=== PATIENT | female | born 1985 | race Two or more races ===

== ENCOUNTER 2023-12-18 21:42 | Outpatient (REF) | payer BC, SELFPAY | END 2023-12-18 21:43 | disposition home or self-care (01) | LOC: LAB 21:42 | PROVIDERS: Visit Provider Obstetrics & Gynecology | DX: Z01.419 Encounter for gynecological examination (general) (routine) without abnormal findings (principal) | CPT/HCPCS: 87624; 88175 ==

== ENCOUNTER 2024-02-12 07:17 | Outpatient (REF) | payer BC, SELFPAY ==
--- OUTSIDE RECORDS SUMMARY | 2024-02-16 07:20 | XMS_ITS | CCD ---
Author Organization [facility] Care Team Providers Care [employer] Sales Representative Name Role Phone MISC, DR ALVAREZ Consulting Unavailable CRISTINA, DR NIX Primary Care Unavailable [facility], DR ALVAREZ Attending Unavailable [facility], DR ALVAREZ Admitting Unavailable Syeda HADDAD, Malathi Mcclain Primary Care Provider [phone] Daniel SALES PROMOTER, Alba Valencia Unavailable Talya Aly DO Unavailable TALYA ALY Attending Unavailable ALBA MONSON Attending Unavailable ALBA MONSON Attending Unavailable ALBA MONSON Attending Unavailable ALBA MONSON Referring Unavailable ALBA MONSON Referring Unavailable MALATHI LANDA Attending Unavailable FAY MOON Attending Unavailable ALBA MONSON Referring Unavailable DANIEL PATEL Attending Unavailable ALBA MONSON Referring Unavailable DANIEL PATEL Attending Unavailable ALBA MONSON Referring Unavailable MALATHI LANDA Attending Unavailable FAY MOON Attending Unavailable Red, Fay Attending Unavailable Fay Moon Admitting Unavailable Medications Current Medications Medication Drug Class(es) Dates Sig (Normalized) Sig (Original) doxycycline hyclate 100 mg oral tablet (5 sources) Tetracycline-cla ss Drug Start: 12-25-2023 End: 06-22-2024 take 1 tablet by mouth in the morning, then take 1 tablet by mouth at bedtime doxycycline (Vibra-Tabs) 100 MG tablet Indications: Suppurative hidradenitis Take 1 tablet (100 mg) by mouth in the morning and 1 tablet (100 mg) before bedtime. Take with a full glass of water and do not lie down for at least 30 minutes after.. 60 tablet 5 12/25/2023 06/22/2024 Active Start: 11-25-2023 End: 12-18-2023 doxycycline (Vibra-Tabs) 100 MG tablet Indications: Suppurative hidradenitis Take with a full glass of water and do not lie down for at least 30 minutes after. Take bid for 7 days then once a day for 14 days 28 tablet 11/25/2023 12/18/2023 Discontinued naproxen 500 mg oral tablet (9 sources) Nonsteroidal Anti-inflammatory Drug Start: 12-18-2023 End: 01-17-2024 take 1 tablet by mouth in the morning naproxen (Naprosyn) 500 MG tablet Indications: Acute right-sided thoracic back pain Take 1 tablet (500 mg) by mouth in the morning and 1 tablet (500 mg) before bedtime. 60 tablet 12/18/2023 01/17/2024 Active tiZANidine 4 mg oral tablet (10 sources) Central alpha-2 Adrenergic Agonist Start: 12-11-2023 End: 12-26-2023 take 1 tablet by mouth in the morning tiZANidine (Zanaflex) 4 MG tablet Indications: Acute bilateral low back pain without sciatica Take 1 tablet (4 mg) by mouth in the morning and 1 tablet (4 mg) before bedtime. Do all this for 15 days. 30 tablet 12/11/2023 Active traMADol hydrochloride 50 mg oral tablet (2 sources) Opioid Agonist Start: 12-14-2023 End: 12-19-2023 take 1 tablet by mouth every six hours for pain traMADol (Ultram) 50 MG tablet Indications: Right flank pain , Acute right-sided thoracic back pain Take 1 tablet (50 mg) by mouth every 6 (six) hours if needed for severe pain for up to 5 days 15 tablet 12/14/2023 12/19/2023 Active Problems Active Problems Problem Classification Problem Date Documented Da te Episodic/Chronic Abdominal pain (10 sources) Right flank pain; Translations: [Unspecified abdominal pain] Onset: 12-20-2023 12-20-2023 Episodic Contraceptive and procreative management (11 sources) Patient encounter status; Translations: [Encounter for other general counseling and advice on contraception] Onset: 12-18-2023 12-18-2023 Episodic Menstrual disorders (20 sources) Amenorrhea; Translations: [Amenorrhea, unspecified] Onset: 02-27-2023 02-27-2023 Chronic Other complications of (10 sources) Anemia of ; Translations: [Anemia complicating , unspecified trimester] Onset: 01-28-2016 02-27-2023 Chronic Other female genital disorders (1 source) Abnormal uterine bleeding; Translations: [Abnormal uterine and vaginal bleeding, unspecified] 02-12-2024 Chronic Other gastrointestinal disorders (10 sources) Irritable bowel syndrome with diarrhea; Translations: [Irritable bowel syndrome with diarrhea] Onset: 02-27-2023 02-27-2023 Chronic Other nutritional; endocrine; and metabolic disorders (20 sources) Obesity caused by energy imbalance; Translations: [Class 2 obesity due to excess calories in adult] Onset: 08-09-2017 02-27-2023 Chronic Other screening for suspected conditions (not mental disorders or infectious disease) (10 sources) Abnormal cervical Papanicolaou smear; Translations: [Unspecified abnormal cytological findings in specimens from cervix uteri] Onset: 12-18-2023 12-18-2023 Episodic Other skin disorders (2 sources) Hidradenitis suppurativa; Translations: [Hidradenitis suppurativa] 12-25-2023 Episodic Spondylosis; intervertebral disc disorders; other back problems (10 sources) Disorder of lumbar disc; Translations: [Unspecified thoracic, thoracolumbar and lumbosacral intervertebral disc disorder] Onset: 02-27-2023 02-27-2023 Chronic Spondylosis; intervertebral disc disorders; other back problems (13 sources) Acute thoracic back pain; Translations: [Pain in thoracic spine] Onset: 12-20-2023 12-18-2023 Episodic Unclassified (3 sources) CONTACT W/AND (SUSP) EXPOS COVID-19; Translations: [CONTACT W/AND (SUSP) EXPOS COVID-19] Onset: 10-22-2021 Past or Other Problems Problem Classification Problem Date Documented Da te Episodic/Chronic Diabetes or abnormal glucose tolerance complicating ; childbirth; or the puerperium (10 sources) Impaired glucose tolerance in ; Translations: [Abnormal glucose complicating ] Onset: 12-30-2017 02-27-2023 Episodic Other complications of (10 sources) Hemorrhoids in ; Translations: [Hemorrhoids in , third trimester] Onset: 02-07-2018 02-27-2023 Episodic Other complications of (10 sources) History of hemorrhage; Translations: [Supervision of with other poor reproductive or obstetric history, unspecified trimester] Onset: 08-09-2017 02-27-2023 Episodic Other disorders of stomach and duodenum (10 sources) Cyclical vomiting syndrome; Translations: [Cyclical vomiting syndrome unrelated to migraine] Onset: 02-27-2023 02-27-2023 Episodic Other female genital disorders (10 sources) Cervical intraepithelial neoplasia grade 2; Translations: [Moderate cervical dysplasia] Onset: 02-27-2023 02-27-2023 Episodic Other gastrointestinal disorders (10 sources) Functional diarrhea; Translations: [Functional diarrhea] Onset: 02-27-2023 02-27-2023 Episodic Other nervous system disorders (10 sources) Sensory disorder of smell and/or taste; Translations: [Unspecified disturbances of smell and taste] Onset: 02-27-2023 02-27-2023 Episodic Other and delivery including normal (10 sources) Vaginal delivery; Translations: [Encounter for full-term uncomplicated delivery] Onset: 02-25-2018 02-27-2023 Episodic Unclassified (1 source) CONTACT W/AND (SUSP) EXPOS COVID-19; Translations: [CONTACT W/AND (SUSP) EXPOS COVID-19] Onset: 10-19-2021 Viral infection (20 sources) Condyloma acuminatum of the anogenital region; Translations: [Anogenital (venereal) warts] Onset: 02-27-2023 02-27-2023 Episodic Results Test Name Value Interpretation Reference Range Facility HCG ( test) Ql (U)O rdered By: Natalie Crawford on 02-12-2024 Interpretation and review of laboratory results Normal [facility] Preg Test, Ur Negative Negative [facility] 02-12-2024 L - -------- Specimen: [id number] Received: 02/13/24 Status: [place]INK [place] Num: [id number] Spec Type: Surgical Subm Dr: Fay Moon Tissues: A Endometrium - Biopsy (ENDOMETRIUM BX) Procedures: HE/2, Gross/Micro L4 -------- Age/ Patient Sex Location Account Attending Physician -------- Ranjit Gross 38/F LABELL [id number] Fay Moon -------- SPEC NUM: [id number] RECD: 02/13/24 STATUS: LINK [place] NUM: [id number] ANA: 02/12/24 [facility] DR: Fay Moon ENTERED: 02/13/[address] [facility] [address]: Vickie Ly SPEC TYPE: Surgical DEPT: SHAN VANN ENTERED BY: [id number] RECV BY: [id number] ORDERED: HE/2, Gross/Micro L4 ORDERED: HE/2, Gross/Micro L4 Pathological Diagnosis Endometrial biopsy: -Consistent with the persistent secretory endometrium, displaying occasional irregular star shaped glands with at least mild cytoplasmic secretory activity, otherwise without obvious mitotic activity identifiable in most examined glands -Also no other obvious features of hyperplasia or atypia identified Clinical Information Menorrhagia irregular periods pelvic pain Gross Description Part A is received in formalin labeled with the patients name, date of , and EMBX are herrera-pink to red-brown, delicate tissue fragments, 2 x 1.4 x 0.2 cm in aggregate. The specimen is filtered and entirely submitted in a single cassette. (1, ns, [id number] A) Microscopic Description Microscopic examinations are performed supporting the above interpretation -------- Specimen: [id number] Received: 02/13/24 Status: [place] Num: [id number] Spec Type: Surgical Subm Dr: Fay Moon Tissues: A Endometrium - Biopsy (ENDOMETRIUM BX) Procedures: HE/2, Gross/Micro L4 -------- Patient: GrossRanjit [id number] (Continued) -------- Specimen: [id number] Received: 02/13/24 (Continued) Signed (signature on file) Shayla Watts MD 02/14/24 1517 -------- Specimen: [id number] Received: 02/13/24 Status: [place] Num: [id number] Spec Type: Surgical Subm Dr: Fay Moon Tissues: A Endometrium - Biopsy (ENDOMETRIUM BX) Procedures: /Kim, Gross/Tristen L4 -------- Patient: Ranjit Gross [id number] (Continued) -------- Specimen: [id number] Received: 02/13/24 (Continued) CPT Codes 06540 -------- -------- Specimen: [id number] Received: 02/13/24 Status: [place] Num: [id number] Spec Type: Surgical Subm Dr: Fay Moon Tissues: A Endometrium - Biopsy (ENDOMETRIUM BX) Procedures: HE/2, Gross/Micro L4 -------- Patient: Nash Grosslazarolucimarybeth [id number] (Continued) -------- Signed (signature on file) Shayla Watts MD 02/14/24 8077 Normal [facility] IGP,APTIMA HPV,AGE GDLNon AGE GDLN ACOG TESTING Note . [facility] Comment on above: TESTS RESULT FLAG UN ITS REF RANGE LAB Clinician Provided Cytology Information Source.............Cervix;Endocervix No. of containers..01 ThinPrep Vial Age Ayaan LOPEZ Nida... FLAG LEGEND: L-Low Normal,H-High Normal,LL-Alert Low,HH-Alert High <-Panic Low,>-Panic High,A-Abnormal,AA-Critical Abnormal Performed at: 01 =[address] [phone] Margie Moreira MD, HPV APTIMA Negative Negative [facility] Comment on above: This nucleic acid am plification test detects fourteen high- risk HPV types (16,18,31,33,35,39,45,51,52,56,58,59,66,68) without differentiation. Performed at: =[address] [id number] Communication Electronic Technician: Margie Moreira MD, Phone: [phone] Performed at: [address] [id number] Communication Electronic Technician: Margie Moreira MD, Phone: [phone] IGP, APTIMA HPV, RFX 16/18,45 Note . [facility] Comment on above: TESTS RESULT FLAG UN ITS REF RANGE LAB DIAGNOSIS: 02 NEGATIVE FOR INTRAEPITHELIAL LESION OR MALIGNANCY. Specimen adequacy: 02 Satisfactory for evaluation. Endocervical and/or squamous metaplastic cells (endocervical component) are present. Performed by: 02 Domenica Miranda, Pricing Actuary (ASCP) . 02 Note: Note 02 The Pap smear is a screening test designed to aid in the detection of premalignant and malignant conditions of the uterine cervix. It is not a diagnostic procedure and should not be used as the sole means of detecting cervical cancer. Both false-positive and false-negative reports do occur. Test Methodology: Note 02 This liquid based ThinPrep(R) pap test was screened with the use of an image guided system. HPV Genotype Reflex Note 02 Criteria not met, HPV Genotype not performed. FLAG LEGEND: L-Low Normal,H-High Normal,LL-Alert Low,HH-Alert High <-Panic Low,>-Panic High,A-Abnormal,AA-Critical Abnormal Performed at: [address] [phone] Margie Moreira MD, BRUSH-SPATULA CERVIX ENDOCERVIX [facility] ABDOMEN PELVIS WO IV CONT [facility] 12-14-2023 CT ABDOMEN PELVIS WO IV CONTRAST CT - CT ABD PEL WO CONTRAST Reason for exam: Right flank pain Technical: Spiral images through the abdomen and pelvis were obtained. Contrast: None. Findings: Lower chest: Unremarkable Liver: Unremarkable. Spleen: Unremarkable. Normal in size. Gallbladder: Normal. Pancreas: Unremarkable. Adrenals: Symmetric and unremarkable. Kidneys/urinary system: Unremarkable. Aorta: Normal. Retroperitoneum: Clear. No adenopathy identified. Bowel: No dilatation, fold or wall thickening is appreciated. Mesentery/Peritoneum: Clear. Abdominal wall: Small fat-containing umbilical hernia. Appendix: Not identified. Bladder: Unremarkable. Reproductive organs/pelvic sidewalls: Normal for age. Bone structures: Intact. Impression: CT abdomen: Fat-containing umbilical hernia. Negative for renal stones or hydronephrosis. No acute findings. CT pelvis: Normal. All CT scans at this institution are performed using dose optimization techniques as appropriate for the performed exam including the following: Automated exposure control Adjustment of the mA and/or kV according to patient size Use of iterative reconstruction technique Dictated on: 12/14/2023 9:19 AM This report has been electronically signed and approved by the interpreting Radiologist. Electronically Signed Clayton López M.D. 2023-12-14 09:22:54 Normal Not Available XR THORACIC SPINE 2 VIEWSon 12-14-2023 XR THORACIC SPINE 2 VIEWS Exam: XR - THORACIC SPINE 2 VIEWS Reason for study: Right thoracic pain Comparison: None AP, lateral, and swimmers views The thoracic vertebral alignment is satisfactory. There is no fracture or listhesis. The disc spaces are maintained. IMPRESSION: Negative thoracic spine Dictated on: 12/14/2023 9:31 AM This report has been electronically signed and approved by the interpreting Radiologist. Electronically Signed Wes Wang D.O. 2023-12-14 09:32:32 Normal Not Available Covid-19 PCR ([facility])on SARS-CoV-2 (COVID-19) RNA CLAUDIA+probe Ql (Unsp spec) Not detected Normal NOT DETECTED [facility] Comment on above: Result Comment: This test is not yet approved or cleared by the [place] FDA. When there are no FDA-approved or cleared tests available, and other criteria are met, FDA can make tests available under an emergency access mechanism called an Emergency Use Authorization (EUA). The EUA for this test is supported by the [place] of Health and Human Service's (HHS's) declaration that circumstances exist to justify the emergency use of in vitro diagnostics for the detection and/or diagnosis of the virus that causes COVID-19. This EUA will remain in effect (meaning this test can be used) for the duration of the COVID-19 declaration justifying emergency of IVDs, unless it is terminated or revoked by FDA (after which the test may no longer be used). When diagnostic testing is negative, the possibility of a false negative should be considered in the context of a patient's recent exposures and the presence of clinical signs and symptoms consistent with SARS-CoV-2. Performed By: #### C REPLACED BY [facility] #### [facility] [address] [place] [place] [address] Dr. Coty Watts Vital Signs Date Time Vital Sign Value Performing Clinician Robe lutz 02-12-2024 09:48-0500 Body mass index (BMI) [Ratio] 44.99 kg/m2 Fay Red DO Work Phone: [facility] 02-12-2024 09:48-0500 Body weight 115.21 kg Fay Red DO Work Phone: [facility] 02-12-2024 09:48-0500 Diastolic blood pressure 72 mm[Hg] Fay Red DO Work Phone: [facility] 02-12-2024 09:48-0500 Systolic blood pressure 118 mm[Hg] Fay Red DO Work Phone: [facility] 12-25-2023 10:43-0400 Body height 160 cm Malathi Landa MD Work Phone: [facility] 12-25-2023 10:43-0400 Body mass index (BMI) [Ratio] 44.89 kg/m2 Malathi Landa MD Work Phone: [facility] 12-25-2023 10:43-0400 Body weight 114.94 kg Malathi Landa MD Work Phone: [facility] 12-25-2023 10:43-0400 Diastolic blood pressure 68 mm[Hg] Malathi Landa MD Work Phone: [facility] 12-25-2023 10:43-0400 Heart rate 91 /min Malathi Landa MD Work Phone: [facility] 12-25-2023 10:43-0400 SaO2% (BldA) [Mass fraction] 98 % Malathi Landa MD Work Phone: [facility] 12-25-2023 10:43-0400 Systolic blood pressure 108 mm[Hg] Malathi Landa MD Work Phone: [facility] 12-18-2023 11:21-0400 Body height 160 cm Malathi Landa MD Work Phone: [facility] 12-18-2023 11:21-0400 Body mass index (BMI) [Ratio] 44.92 kg/m2 Malathi Landa MD Work Phone: [facility] 12-18-2023 11:21-0400 Body weight 115.03 kg Malathi Landa MD Work Phone: [facility] 12-18-2023 11:21-0400 Diastolic blood pressure 76 mm[Hg] Malathi Landa MD Work Phone: [facility] 12-18-2023 11:21-0400 Heart rate 89 /min Malathi Landa MD Work Phone: [facility] 12-18-2023 11:21-0400 Respiratory rate 18 /min Malathi Landa MD Work Phone: [facility] 12-18-2023 11:21-0400 SaO2% (BldA) [Mass fraction] 99 % Malathi Landa MD Work Phone: [facility] 12-18-2023 11:21-0400 Systolic blood pressure 132 mm[Hg] Malathi Landa MD Work Phone: [facility] Encounters Encounter Date Encounter Type Care Provider Facility Start: 02-12-2024 End: 02-12-2024 Patient encounter procedure Fay Red DO Work Phone: [facility] Comment on above: Pre-op examination; Menorrhagia with regular cycle; Abnormal uterine bleeding (AUB); Pelvic pain in female; Request for sterilization Start: 02-12-2024 End: 02-12-2024 Preprocedural examination done Fay Red DO Work Phone: [facility] Start: 02-12-2024 End: 02-12-2024 ambulatory FAY RED Not Available Start: 12-25-2023 End: 12-25-2023 ambulatory MALATHI LANDA Not Available Start: 12-25-2023 End: 12-25-2023 Office outpatient visit 15 minutes Malathi Landa MD Work Phone: [facility] Comment on above: Suppurative hidraden itis (Primary Dx); Acute bilateral low back pain without sciatica Start: 12-21-2023 End: 12-22-2023 ambulatory Daniel J Oumar PT Work Phone: [facility] Comment on above: Acute right-sided lo w back pain without sciatica (Primary Dx); Right flank pain Start: 12-21-2023 End: 12-21-2023 Bamboo flowsheet Daniel J Oumar PT Work Phone: [facility] Start: 12-21-2023 End: 12-21-2023 Bamboo flowsheet Daniel J Oumar PT Work Phone: [facility] Start: 12-20-2023 End: 12-20-2023 Bamboo flowsheet Daniel J Oumar PT Work Phone: [facility] Start: 12-20-2023 End: 12-20-2023 Bamboo flowsheet Daniel J Oumar PT Work Phone: [facility] Start: 12-20-2023 End: 12-20-2023 ambulatory Daniel J Oumar PT Work Phone: [facility] Comment on above: Acute right-sided lo w back pain without sciatica (Primary Dx); Right flank pain Start: 12-18-2023 End: 12-25-2023 Cl[facility]ync Result Encounter Fay Red DO Work Phone: [facility] Unsolicited Start: 12-18-2023 End: 12-25-2023 Clinisync Result Encounter Fay Red DO Work Phone: [facility] Unsolicited Start: 12-18-2023 Patient encounter procedure Malathi Landa MD Work Phone: [facility] Start: 12-18-2023 End: 12-18-2023 ambulatory FAY RED Not Available Start: 12-18-2023 End: 12-18-2023 Office outpatient visit 15 minutes Malathi Landa MD Work Phone: [facility] Comment on above: Acute right-sided th oracic back pain (Primary Dx) Start: 12-18-2023 End: 12-18-2023 ambulatory MALATHI LANDA Not Available Start: 12-14-2023 End: 12-14-2023 ambulatory ALBA R MONSON Not Available Start: 12-14-2023 End: 12-14-2023 ambulatory ALBA R MONSON Not Available Start: 12-11-2023 End: 12-11-2023 ambulatory ALBA R MONSON Not Available Start: 11-25-2023 End: 11-25-2023 ambulatory ALBA R MONSON Not Available Start: 02-27-2023 End: 02-27-2023 ambulatory TALYA ALY Not Available Start: 10-19-2021 End: 10-19-[address] ALVAREZ [facility] Facility: Procedures Date Procedure Procedure Detail Performing Clinician Start: 02-12-2024 Urine test visual color cmprsn meths Fay Red DO Work Phone: Start: 12-18-2023 IGP,APTIMA HPV,AGE GDLN Fay [employer] Work Phone: Start: 12-18-2023 Microscopic observat ion [Identifier] in Cervix by Cyto stain Fay Red DO Work Phone: Plan of Treatment Date Care Activity Detail Author Start: 01-10-2027 Screening for malign ant neoplasm of cervix [facility] Start: 12-17-2026 Screening for malign ant neoplasm of cervix Pap Smear [facility] Start: 09-16-2024 Influenza vaccination Influenza Vacc ine (#1) [facility] Comment on above: Postponed from 11/18 (Patient Refused) Start: 02-08-2024 End: 02-08-2024 Patient encounter procedure 02/08/2024 9:30 AM EST Procedure Visit [facility] [address] [place] [address] Fay Moon, DO [address] [place] [address] [facility] Start: 12-28-2023 End: 12-28-2023 ambulatory 12/28/2023 5:00 PM EDT Treatment [facility] [address] [place] [phone] Amairani López PTA [address] [place] [address] [facility] Start: 12-26-2023 End: 12-26-2023 ambulatory 12/26/2023 5:00 PM EDT Treatment [facility] [address] [place] [phone] Camryn Miner PTA [facility] Start: 12-25-2023 End: 12-25-2023 Patient encounter procedure 12/25/2023 10:40 AM EDT Office Visit [facility] [address] [facility] [place] [phone] Malathi Landa MD [address] [facility] [place] [address] [facility] Start: 12-21-2023 End: 12-21-2023 ambulatory [facility] Comment on above: Arrived Start: 12-20-2023 End: 12-20-2023 ambulatory [facility] Comment on above: Right flank pain; Acute right-sided thoracic back pain Start: 11-17-2008 Screening for malign ant neoplasm of cervix Pap Smear [facility] Endometrial biopsy Endometrial b iopsy Procedures Routine Menorrhagia with regular cycle Abnormal uterine bleeding (AUB) Pelvic pain in female Ordered: 02/12/2024 [facility] Work Phone: Comment on above: Ordered: 02/12/2024 Immunizations Immunization Date Immunization Notes Care Provider Fa [facility] 03-23-2019 tetanus toxoid, redu sushil diphtheria toxoid, and acellular pertussis vaccine, adsorbed Malathi Landa MD Work Phone: [facility] 12-14-2017 tetanus toxoid, redu sushil diphtheria toxoid, and acellular pertussis vaccine, adsorbed Malathi Landa MD Work Phone: [facility] 01-21-2011 tetanus toxoid, redu sushil diphtheria toxoid, and acellular pertussis vaccine, adsorbed Malathi Landa MD Work Phone: [facility] 12-27-2005 influenza, seasonal, injectable Malathi Landa MD Work Phone: [facility] 12-27-2005 influenza virus vacc ine, unspecified formulation Malathi Landa MD Work Phone: [facility] 09-12-2000 hepatitis B vaccine, pediatric or pediatric/adolescent dosage Malathi Landa MD Work Phone: [facility] 09-12-2000 measles, mumps and rubella virus vaccine Malathi Landa MD Work Phone: [facility] 09-13-1999 hepatitis B vaccine, pediatric or pediatric/adolescent dosage Malathi Landa MD Work Phone: [facility] 09-13-1999 measles, mumps and rubella virus vaccine Malathi Landa MD Work Phone: [facility] 11-16-1992 diphtheria, tetanus toxoids and pertussis vaccine Malathi Landa MD Work Phone: [facility] 11-16-1992 poliovirus vaccine, inactivated Malathi Landa MD Work Phone: [facility] 01-27-1992 diphtheria, tetanus toxoids and pertussis vaccine Malathi Landa MD Work Phone: [facility] 07-08-1991 diphtheria, tetanus toxoids and pertussis vaccine Malathi Landa MD Work Phone: [facility] 07-08-1991 poliovirus vaccine, inactivated Malathi Landa MD Work Phone: [facility] 10-16-1990 haemophilus influenz ae type b vaccine, HbOC conjugate Malathi Landa MD Work Phone: [facility] 10-16-1990 measles, mumps and rubella virus vaccine Malathi Landa MD Work Phone: [facility] 01-09-1989 diphtheria, tetanus toxoids and pertussis vaccine Malathi Landa MD Work Phone: [facility] 01-09-1989 poliovirus vaccine, inactivated Malathi Landa MD Work Phone: [facility] 05-23-1988 diphtheria, tetanus toxoids and pertussis vaccine Malathi Landa MD Work Phone: [facility] 05-23-1988 poliovirus vaccine, inactivated Malathi Landa MD Work Phone: [facility] Healthcare Payers Date Payer Category Payer Self-pay 2021 [facility] BCBS Memb er Subscriber Plan / Payer (Effective 2021-Present) Name: Viktoria Gross Stapleton Avinash Relation to Subscriber: Self Name: Rex Viktoria Stapleton Avinash Payer ID: Not on file Type: Not on file Address: [address] [id number] 2021 Unknown BCBS BCBS [id number] [id number] 2021-Present [phone] [address] [id number] 1987 Unknown [id number] 2.840.1.610902.3.579.2. 593 1987 Unknown [id number] 2.16840.1.272193.3.579.2. 9 1987 Unknown [id number] 2.16.840.1.665260.3.579.2. 9 1987 Unknown [id number] 2.16840.1.242017.3.579.2. 1259 1987 Unknown [id number] 2.16840.1.467435.3.579.2. 9 1987 Unknown [id number] 2.16.840.1.910832.3.579.2. 9 1987 Unknown [id number] 2.16.840.1.537138.3.579.2. 1258 1987 Unknown [id number] 2.16.840.1.077715.3.579.2. 1258 1987 Unknown [id number] 2.16.840.1.710354.3.579.2. 1258 1987 Unknown [id number] 2.16.840.1.456444.3.579.2. 1258 1987 Unknown [id number] 2.16.840.1.532841.3.579.2. 1258 1987 Unknown [id number] 2.16.840.1.479260.3.579.2. 1258 1987 Unknown [id number] 2.16.840.1.939632.3.579.2. 9 1959 Unknown [id number] 1959 Unknown [id number] Unknown [id number] [id number]. 531 Social History Date Type Detail Facility Start: 02-27-2023 Tobacco smoking stat [facility] Never smoked tobacco [facility] Start: 02-27-2023 Tobacco use and exposure Smokeless t obacco non-user [facility] Start: 12-18-2023 End: 12-25-2023 History of Social function [facility] Start: 12-18-2023 End: 12-25-2023 Tobacco use panel [facility] Start: 1987 Sex assigned at Not on file [facility] History of Present illness Narrative 02-12-2024 Kayce Martin - 02/12/2024 9:30 AM EST Note Date & Type Note Facility 02-12-2024 History of Presen t illness Narrative Reason for Appointment: Patient ID: Viktoria Diaz is a 38 y.o. female who presents for Pre-op Visit and Endometrial Biopsy Patient presents today for Pre Op/Endometrial Biopsy appointment. Patient is scheduled to undergo Da Elsie assisted Bilateral Laparoscopic Salpingectomy and Endometrial Ablation with Molly on 03/08/[address] Moon at [facility]. MEDICATIONS Current Outpatient Medications Medication Instructions doxycycline (VIBRA-TABS) 100 mg, Oral, 2 times daily, Take with a full glass of water and do not lie down for at least 30 minutes after. tiZANidine (ZANAFLEX) 4 mg, Oral, 2 times daily ALLERGIES No Known Allergies PROBLEMS Active Ambulatory Problems Diagnosis Date Noted Amenorrhea 02/27/2023 Anemia affecting 01/28/2016 Cervical intraepithelial neoplasia grade 2 02/27/2023 Anogenital warts 02/27/2023 COVID-19 02/27/2023 Decreased taste and smell 02/27/2023 Glucose intolerance of 12/30/2017 Functional diarrhea 02/27/2023 Hemorrhoids during in third trimester 02/07/2018 Hx of hemorrhage, currently 08/09/2017 Irritable bowel syndrome with diarrhea 02/27/2023 Lumbar disc disease 02/27/2023 Class 2 obesity due to excess calories in adult 08/09/2017 Morbid (severe) obesity due to excess calories (CMS/HCC) 02/27/2023 Non-intractable cyclical vomiting with nausea 02/27/2023 (spontaneous vaginal delivery) 02/25/2018 Sterilization consult 12/18/2023 Abnormal cervical Papanicolaou smear 12/18/2023 Well woman exam with routine gynecological exam 12/18/2023 Menorrhagia with irregular cycle 12/18/2023 Irregular menstrual cycle 12/18/2023 Acute right-sided low back pain without sciatica 12/20/2023 Right flank pain 12/20/2023 Resolved Ambulatory Problems Diagnosis Date Noted No Resolved Ambulatory Problems No Additional Past Medical History HISTORY PAST MEDICAL HISTORY SOCIAL HISTORY No past medical history on file. Social History Tobacco Use Smoking status: Never Smokeless tobacco: Never Substance Use Topics Alcohol use: Not on file Drug use: Not on file FAMILY HISTORY No family history on file. SURGICAL HISTORY Past Surgical History: Procedure Laterality Date TONSILLECTOMY REVIEW OF SYSTEMS Review of Systems: Review of Systems Constitutional: Negative. HENT: Negative. Eyes: Negative. Respiratory: Negative. Cardiovascular: Negative. Gastrointestinal: Negative. Genitourinary: Positive for menstrual problem and pelvic pain. Musculoskeletal: Negative. Skin: Negative. Neurological: Negative. All other systems reviewed and are negative. Hematological: Negative. Endocrine: Negative. Allergic/Immunologic: Negative. OBJECTIVE Objective: Physical Exam Constitutional: Appearance: Normal appearance. She is well-developed. Genitourinary: Vulva normal. Cardiovascular: Rate and Rhythm: Normal rate and regular rhythm. Pulmonary: Effort: Pulmonary effort is normal. Breath sounds: Normal breath sounds. Abdominal: General: Bowel sounds are normal. There is no distension. Palpations: Abdomen is soft. Tenderness: There is no abdominal tenderness. There is no guarding or rebound. Musculoskeletal: General: No swelling. Normal range of motion. Right lower leg: No edema. Left lower leg: No edema. Neurological: Mental Status: She is alert and oriented to person, place, and time. Skin: General: Skin is warm and dry. Psychiatric: Mood and Affect: Mood normal. Behavior: Behavior normal. Vitals and nursing note reviewed. Exam conducted with a erco machine operator present. Vitals: Estimated body mass index is 44.89 kg/m as calculated from the following: Height as of 12/25/23: 5' 3 . Weight as of 12/25/23: 253 lb 6.4 oz. BP: No LMP recorded. ASSESSMENT & PLAN ICD-10-CM 1. Pre-op examination Z01.818 2. Menorrhagia with regular cycle N92.0 3. Abnormal uterine bleeding (AUB) N93.9 4. Pelvic pain in female R10.2 5. Request for sterilization Z30.2 EMBX: Patient was placed in dorsal lithotomy position with feet in stirrups. A sterile speculum was placed into the vagina and the cervix was visualized. The cervix was grasped with a single tooth tenaculum. The endometrial pipette was placed through the cervix into the uterus, endometrial curettage was performed and sampling was obtained, endometrial curettings were placed in formalin, and single tooth tenaculum was removed. Excellent hemostasis was assured. All instruments were removed from vagina. Pre Op: Patient is doing well but has desire for sterilization and has complaints of bleeding and pelvic pain. Patient has tried hormone therapy in the past but all attempts to subside patients issues of bleeding have failed. I have discussed conservative management vs. surgical management with the patient in detail and patient desires surgical management at this time. Patient has voiced understanding that a Bilateral Salpingectomy is considered to be permanent and patient will undergo Da Elsie assisted Bilateral Laparoscopic Salpingectomy & Endometrial Ablation with Molly on 03/08/2024. Surgical consents were signed, mmc was reviewed, and patient is to proceed to [facility] OR. Follow Up: Patient is to follow up between 1-2 weeks post op to assess proper healing and recovery from procedure. Documented by Valencia Ariza LPN on behalf of: Fay Moon DO documented in this encounter [facility] History of Present illness Narrative 12-25-2023 Malathi Landa MD - 12/25/2023 10:40 AM EDT Note Date & Type Note Facility 12-25-2023 History of Presen t illness Narrative Images from the original note were not included. Viktoria Diaz is a 38 y.o. female presents with chief complaint of Follow-up (Lower back in the middle still having an occasional sharp pain\, but nothing like before. Patient reports feeling much better than before. ) HPI: Patient has some boils underneath her stomach. Patient gets these often and they're very painful. Will be diffused and in clusters. Patient said when she was on an antibiotic these cleared up but once she stopped them they came on worse. History of Present Illness The patient is a 38-year-old female who presents for evaluation of back pain. She reports an improvement in her back condition, attributing it to the daily exercises she has been performing. She describes the previous pain as severe, likening it to labor pain due to its intensity and duration. Currently, she experiences occasional pain during walking, but finds it manageable. She has a physical therapy session scheduled for tomorrow. She has been dealing with boils on her stomach for some time. These boils appear periodically, lasting for a few months each time. She sought medical attention from Dr. Erwin, who prescribed medication that successfully treated the boils. However, they reappeared a few days ago, causing significant discomfort. SUBJECTIVE: MEDICATIONS: Current Outpatient Medications Medication Instructions naproxen (NAPROSYN) 500 mg, Oral, 2 times daily tiZANidine (ZANAFLEX) 4 mg, Oral, 2 times daily I have reviewed and reconciled the history and medication list with the patient today. REVIEW OF SYMPTOMS: Review of Systems Skin: Positive for wound. All other systems reviewed and are negative. OBJECTIVE: Visit Vitals BP 108/68 Pulse 91 Ht 5' 3 Wt 253 lb 6.4 oz LMP 12/15/2023 SpO2 98% BMI 44.89 kg/m OB Status Having periods Smoking Status Never BSA 2.26 m Physical Exam ASSESSMENT AND PLAN: Assessment/Plan Problem List Items Addressed This Visit None Visit Diagnoses Suppurative hidradenitis - Primary Relevant Medications doxycycline (Vibra-Tabs) 100 MG tablet Acute bilateral low back pain without sciatica Assessment & Plan 1. Back pain. Improving cleared to return to work cont with PT She reports significant improvement but still experiences occasional pain while walking. Continuation of daily exercises was recommended to maintain progress. She has a physical therapy appointment scheduled for tomorrow. A work note was provided. 2. Suppurative hidradenitis. She has recurrent painful and scarring lesions. A healthy diet and regular exercise were advised to help balance hormones. An antibiotic prescription will be sent to [facility] pharmacy in [place]. The benefits of continuous antibiotic use outweigh the disadvantages in her case. If the antibiotics prove ineffective, alternative treatments will be considered. documented in this encounter [facility] History of Present illness Narrative 12-21-2023 Daniel Patel, PT - 12/21/2023 5:00 PM EDT Note Date & Type Note Facility 12-21-2023 History of Presen t illness Narrative Images from the original note were not included. Physical Therapy Physical Therapy Evaluation Visit Patient Name: Viktoria Diaz Today's Date: 12/21/2023 Encounter Diagnoses Name Primary? Acute right-sided low back pain without sciatica Yes Right flank pain Visit number: 2 Time in: 4:55 pm Time out: 5:35 pm Sup time: 25 min Total time: 40 min Subjective Viktoria Diaz 38 y.o. female presents to physical therapy w/ chief c/o right side back pain pain. Mechanism of Onset: unknown started about 1-2 weeks ago no known MUSTAPHA/cause, worse over first 3-5 days, min improvement since Current deficits: Decreased ROM/flexibility, core/hip weakness, impaired gait and functional mobility Pain: mod entering, felt some relief from last session but had to do things around house and for kids that evening and exacerbated things once again. 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 Seated posture tends to lean L and compensate Lumbar/thoracic mobility: flex=mod to severe loss, hai rotation mod loss, ext= min loss no significant increase in pain Mod decreased HS flexibility hai worse on R Hai core/hip strength grossly 3-/5 MMT lumbar pain likely limiting Possible slight R ant innominate rotation at IE, difficult to palpate at pelvis 2nd to adipose tissue Great difficulty getting to/from supine to sit, min to mod A needed supine to sit 2nd to pain Treatment Interventions Manual Therapy: MET for R ant innominate rotation Leg length = today no need, STM/massage prn Therapeutic Exercise: per TOY grid, ROM, flexibility x 15 min sup Therapeutic Activity: Exercises to improve dynamic activities, functional tasks, functional mobility to return to prior activity level Neuromuscular re-education: TA/lumbar stabilization training with core/hip strengthening x 10 min Modalities: MHP/ESU IFC seated in chair x 12 min end of session, min relief reported Assessment/Plan R side low back pain extending up to thoracic area at times, decreased ROM/flexibility, decreased core/hip strength causing impaired gait, postural compensation resulting in inability to work and decreased QOL at this time. Poor tolerance to all attempted TOY at IE Goals: 1) pt will demo lumbar-thoracic spinal mobility grossly WNL all planes pain free 2) pt will demo normalized quality of gait, non-antalgic 3) pt will self report impairment less than or equal to 10% per back index and be cleared to RTW. 4) pt will be ind with HEP for maintenance at DC and able to avoid further imaging/intervention. Fair tolerance to all, eased into some lumbar stabilization and core/hip strengthening. Some relief once again with heat/ESU. documented in this encounter [facility] History of Present illness Narrative 12-20-2023 Daniel Patel, PT - 12/20/2023 12:00 PM EDT Note Date & Type Note Facility 12-20-2023 History of Presen t illness Narrative Images from the original note were not included. Physical Therapy Physical Therapy Evaluation Visit Patient Name: Viktoria Diaz Today's Date: 12/20/2023 Encounter Diagnoses Name Primary? Acute right-sided low back pain without sciatica Yes Right flank pain Visit number: 1 Subjective Viktoria Diaz 38 y.o. female presents to physical therapy w/ chief c/o right side back pain pain. Mechanism of Onset: unknown started about 1-2 weeks ago no known MUSTAPHA/cause, worse over first 3-5 days, min improvement since Current deficits: Decreased ROM/flexibility, core/hip weakness, impaired gait and functional mobility Pain: Location: R side back, mostly low back into SI/post hip area today, also extends up into thoracic area at times Aggravating Factors: transfers, laying on L side, difficulty sleeping, ADLs/self care including caring for children, off work at least through Dr ramey on Monday Relieving factors: min to nil per pt, meds don't seem to help, no change with steroid per pt, has tried some heat/cold no real help Imaging: X-ray only to date, unremarkable, no MRI 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 Seated posture tends to lean L and compensate Lumbar/thoracic mobility: flex=mod to severe loss, hai rotation mod loss, ext= min loss no significant increase in pain Mod decreased HS flexibility hai worse on R Hai core/hip strength grossly 3-/5 MMT lumbar pain likely limiting Possible slight R ant innominate rotation at IE, difficult to palpate at pelvis 2nd to adipose tissue Great difficulty getting to/from supine to sit, min to mod A needed supine to sit 2nd to pain Treatment Interventions Education: HEP education with demonstration with handout and review, Educated on Eval Findings and POC, heat vs cold x 10 min self care Manual Therapy: MET for R ant innominate rotation x 10 min, STM/massage prn Therapeutic Exercise: per TOY grid, ROM, flexibility x 15 min sup Therapeutic Activity: Exercises to improve dynamic activities, functional tasks, functional mobility to return to prior activity level Neuromuscular re-education: TA/lumbar stabilization training with core/hip strengthening as able Modalities: MHP/ESU IFC seated in chair x 12 min end of session, min relief reported Assessment/Plan R side low back pain extending up to thoracic area at times, decreased ROM/flexibility, decreased core/hip strength causing impaired gait, postural compensation resulting in inability to work and decreased QOL at this time. Poor tolerance to all attempted TOY at IE Goals: 1) pt will demo lumbar-thoracic spinal mobility grossly WNL all planes pain free 2) pt will demo normalized quality of gait, non-antalgic 3) pt will self report impairment less than or equal to 10% per back index and be cleared to RTW. 4) pt will be ind with HEP for maintenance at OR and able to avoid further imaging/intervention. Pt will benefit from skilled PT to address the above impairments for 1-3x/week for 4-6 weeks pending pt needs/progress. $40.00 copay may affect visit frequency I hereby deem this POC medically necessary. Please sign below. Date: documented in this encounter [facility] History of Present illness Narrative 12-18-2023 Malathi Landa MD - 12/18/2023 11:40 AM EDT Note Date & Type Note Facility 12-18-2023 History of Presen t illness Narrative Viktoria Diaz is a 38 y.o. female presents with chief complaint of Back Pain (Patient presents today for ongoing back pain. ) HPI: HPI Pain is barely better. Contiwth with right flank pain. Worse with movement. Wake her from sleep PT starts tomorrow SUBJECTIVE: MEDICATIONS: Current Outpatient Medications Medication Instructions doxycycline (Vibra-Tabs) 100 MG tablet Take with a full glass of water and do not lie down for at least 30 minutes after. Take bid for 7 days then once a day for 14 days tiZANidine (ZANAFLEX) 4 mg, Oral, 2 times daily traMADol (ULTRAM) 50 mg, Oral, Every 6 hours PRN ALLERGIES: No Known Allergies SURGICAL HISTORY: No past surgical history on file. FAMILY HISTORY: No family history on file. SOCIAL HISTORY: Social History Tobacco Use Smoking status: Never Smokeless tobacco: Never Depression: Not on file REVIEW OF SYMPTOMS: Review of Systems Respiratory: Negative. Cardiovascular: Negative. OBJECTIVE: Visit Vitals Smoking Status Never Visit Vitals BP 132/76 (BP Location: Left arm, Patient Position: Sitting, BP Cuff Size: Large adult) Pulse 89 Resp 18 Ht 5' 3 Wt 253 lb 9.6 oz LMP 12/15/2023 SpO2 99% BMI 44.92 kg/m OB Status Having periods Smoking Status Never BSA 2.26 m Physical Exam Constitutional: Appearance: Normal appearance. She is normal weight. Musculoskeletal: Cervical back: Normal range of motion and neck supple. Comments: Able to walk on toes and heels. Fair flexion, diffuse right flank pain to palpation Skin: General: Skin is warm and dry. Neurological: General: No focal deficit present. Mental Status: She is alert and oriented to person, place, and time. Mental status is at baseline. Psychiatric: Mood and Affect: Mood normal. Behavior: Behavior normal. Thought Content: Thought content normal. Judgment: Judgment normal. ASSESSMENT AND PLAN: Assessment/Plan Problem List Items Addressed This Visit None Visit Diagnoses Acute right-sided thoracic back pain - Primary Relevant Medications naproxen (Naprosyn) 500 MG tablet Labs xray and ct reviewed. Agree with plan for PT Off work this week Recommend naprosyn bid for antinflammatory effect. Recheck in 5 days documented in this encounter [facility] Evaluation note Note Date & Type Note Facility Evaluation note Diagnosis Acute right-sided thoracic back pain- Primary documented in this encounter [facility] Evaluation note Note Date & Type Note Facility Evaluation note Diagnosis Acute right-sided low back pain without sciatica- Primary Right flank pain Abdominal pain, unspecified site documented in this encounter [facility] Evaluation note Note Date & Type Note Facility Evaluation note Diagnosis Acute right-sided low back pain without sciatica- Primary Right flank pain Abdominal pain, unspecified site documented in this encounter [facility] Healthcare Evaluation note Note Date & Type Note Facility Evaluation note Diagnosis Suppurative hidradenitis- Primary Hidradenitis Acute bilateral low back pain without sciatica documented in this encounter [facility] Healthcare Evaluation note Note Date & Type Note Facility Evaluation note Diagnosis Pre-op examination Menorrhagia with regular cycle Abnormal uterine bleeding (AUB) Pelvic pain in female Unspecified symptom associated with female genital organs Request for sterilization documented in this encounter [facility] Summary Purpose Family History No Family History Records FoundNo Family History Records FoundNo Family History Records Found Advance Directives No Advanced Directives Records FoundNo Advanced Directives Records FoundNo Advanced Directives Records Found Additional Source Comments INFORMATION SOURCE (unrecogn ized section and content) DATE CREATED AUTHOR 10/23/2021 [facility] DATE CREATED AUTHOR AUTHOR'S ORGANIZ ATION 02/14/2024 [facility] EPIC DATE CREATED AUTHOR AUTHOR'S ORGANIZ ATION 02/16/2024 [facility] Reason for Visit (unrecogniz ed section and content) Reason Comments Back Pain Patient presents tod ay for ongoing back pain. Patient seen Alba on 12/10 for issue and it isn't getting better. Specialty Diagnoses / Procedures Referred By Ion t Referred To Contact Physical Therapy Diagnoses Right flank pain Acute right-sided thoracic back pain Procedures LA OFFICE/OUTPATIENT NEW HIGH MDM 60 MINUTES Alba Monson, SALES PROMOTER [address] [place] [address] Daniel Patel, PT [address] [place] [address] Referral ID Status Reason Start Date Expiration Date Visits Requested Visits Authorized [id number] Authorized Specialty Services Required 12/14/2023 06/11/2024 20 20 Reason Comments Follow-up Lower back in the in ddle still having an occasional sharp pain\, but nothing like before. Patient reports feeling much better than before. Reason Comments Pre-op Visit Endometrial Biopsy Care Teams (unrecognized sec tion and content) [employer] Sales Representative Relationship Specialty Start Date End Date Malathi Landa MD [address] [facility] [place] [address] [place] [address] PCP - General Family Medicine 11/24/23 Alba Monson, VALENTÍN [address] [facility] [place] [address] Nurse Practitioner Family Medicine 11/24/23 [employer] Sales Representative Relationship Specialty Start Date End Date Malathi Landa MD [address] [facility] [place] [address] PCP - General Family Medicine 11/24/23 Alba Monson NP [address] [facility] [place] [address] Nurse Practitioner Family Medicine 11/24/23 [employer] Sales Representative Relationship Specialty Start Date End Date Malathi Landa MD [address] [facility] [place] [address] PCP - General Family Medicine 11/24/23 Alba Monson NP [address] [facility] [place] [address] Nurse Practitioner Family Medicine 11/24/23 [employer] Sales Representative Relationship Specialty Start Date End Date Malathi Landa MD [address] [place] [address] PCP - General Family Medicine 11/24/23 Alba Monson, VALENTÍN [address] [place] [address] Nurse Practitioner Family Medicine 11/24/23 [employer] Sales Representative Relationship Specialty Start Date End Date Malathi Landa MD [address] [place] [address] PCP - General Family Medicine 11/24/23 Alba Monson, SALES PROMOTER [address] [place] [address] Nurse Practitioner Family Medicine 11/24/23 [employer] Sales Representative Relationship Specialty Start Date End Date Malathi Landa MD [address] [place] [address] PCP - General Family Medicine 11/24/23 Alba Monson NP [address] [place] [address] Nurse Practitioner Family Medicine 11/24/23 [employer] Sales Representative Relationship Specialty Start Date End Date Talya Aly DO [address] [place] [address] PCP - [employer] 01/18/22 Malathi Landa MD [address] [place] [address] PCP - General Family Medicine 11/24/23 Alba Monson NP [address] [place] [address] Nurse Practitioner Family Medicine 11/24/23 FOR RECORDS PERTAINING TO PATIENTS WHO ARE OR HAVE BEEN ENROLLED IN A CHEMICAL DEPENDENCY/SUBSTANCEABUSE PROGRAM, SOME INFORMATION MAY BE OMITTED. This clinical summary was aggregated from multiple sources. Caution should be exercised in using it in the provision of clinical care. This summary normalizes information from multiple sources, and as a consequence, information in this document may materially change the coding, format and clinical context of patient data. In addition, data may be omitted in some cases. CLINICAL DECISIONS SHOULD BE BASED ON THE PRIMARY CLINICAL RECORDS. [facility] [employer] [facility] provides no warranty or guarantee of the accuracy or completeness of information in this document.
== END 2024-02-12 07:18 | disposition home or self-care (01) ==
LOC: LAB 07:17
PROVIDERS: Visit Provider Obstetrics & Gynecology
DX: N92.0 Excessive and frequent menstruation with regular cycle (principal); R10.2 Pelvic and perineal pain; N92.5 Other specified irregular menstruation
CPT/HCPCS: 88305

== ENCOUNTER 2024-02-27 09:47 | Outpatient (OUT) | payer BC, SELFPAY | END 2024-02-27 09:48 | disposition home or self-care (01) | LOC: PST 09:47 | PROVIDERS: Visit Provider Obstetrics & Gynecology | DX: Z01.818 Encounter for other preprocedural examination (principal); N92.0 Excessive and frequent menstruation with regular cycle; N93.9 Abnormal uterine and vaginal bleeding, unspecified; R10.2 Pelvic and perineal pain ==

== ENCOUNTER 2024-03-08 06:09 | Day surgery (SDC) | payer BC, SELFPAY ==
[2024-02-27 10:27] VITALS: BP 122/84; PULSE 67; TEMP 36.3; O2SAT 99; BMI 45.2
[2024-03-08] VITALS (13 sets, daily range): BP systolic 118–134; BP diastolic 63–89; PULSE 63–92; TEMP 36.2–36.3; O2SAT 92–96; BMI 45.2
--- OUTSIDE RECORDS SUMMARY | 2024-03-08 06:12 | XMS_ITS | CCD ---
Author Organization [facility] Care Team Providers Care Powder Room Attendant Name Role Phone LANI, DR ALVAREZ Consulting Unavailable CRISTINA, DR NIX Primary Care Unavailable LANI, DR ALVAREZ Attending Unavailable LANI, DR ALVAREZ Admitting Unavailable Syeda HADDAD, Malathi Mcclain Primary Care Provider Daniel BOARD MILL SUPERVISOR, Alba Valencia Unavailable Talya Aly DO Unavailable [...] LANDA Attending Unavailable FAY MOON Attending Unavailable Fay Moon Attending Unavailable Fay Moon Admitting Unavailable Medications Current Medications Medication Drug Class(es) Dates Sig (Normalized) Sig (Original) doxycycline hyclate 100 mg oral tablet (9 sources) Tetracycline-cla ss Drug Start: 12-25-2023 End: [...] 01/17/2024 Active tiZANidine 4 mg oral tablet (11 sources) Central alpha-2 Adrenergic Agonist Start: 12-11-2023 [...] Date Documented Da te Episodic/Chronic Abdominal pain (11 sources) Right flank pain; Translations: [Unspecified abdominal pain] Onset: 12-20-2023 12-20-2023 Episodic Contraceptive and procreative management (12 sources) Patient encounter status; Translations: [Encounter for other general counseling and advice on contraception] Onset: 12-18-2023 12-18-2023 Episodic Menstrual disorders (20 sources) Amenorrhea; Translations: [Amenorrhea, unspecified] Onset: 02-27-2023 02-27-2023 Chronic Other complications of (15 sources) Anemia of ; Translations: [Anemia complicating , unspecified trimester] Onset: 01-28-2016 02-27-2023 Chronic Other female genital disorders (1 source) Abnormal uterine bleeding; Translations: [Abnormal uterine and vaginal bleeding, unspecified] 02-12-2024 Chronic Other gastrointestinal disorders (15 sources) Irritable bowel syndrome with diarrhea; Translations: [Irritable bowel syndrome with diarrhea] Onset: 02-27-2023 02-27-2023 Chronic Other nutritional; endocrine; and metabolic disorders (20 sources) Obesity caused by energy imbalance; Translations: [Class 2 obesity due to excess calories in adult] Onset: 08-09-2017 02-27-2023 Chronic Other nutritional; endocrine; and metabolic disorders (2 sources) Body mass index 40+ - severely obese; Translations: [Body mass index (BMI) 40.0-44.9, adult] 11-25-2023 Chronic Other screening for suspected conditions (not mental disorders or infectious disease) (13 sources) Abnormal cervical Papanicolaou smear; Translations: [Unspecified abnormal cytological findings in specimens from cervix uteri] Onset: 12-18-2023 12-18-2023 Episodic Other skin disorders (4 sources) Hidradenitis suppurativa; Translations: [Hidradenitis suppurativa] 12-25-2023 Episodic Spondylosis; intervertebral disc disorders; other back problems (15 sources) Disorder of lumbar disc; Translations: [Unspecified thoracic, thoracolumbar and lumbosacral intervertebral disc disorder] Onset: 02-27-2023 02-27-2023 Chronic Spondylosis; intervertebral disc disorders; other back problems (14 sources) Acute thoracic back pain; Translations: [Pain in thoracic spine] Onset: 12-20-2023 12-18-2023 Episodic Unclassified (3 sources) CONTACT W/AND (SUSP) EXPOS COVID-19; Translations: [CONTACT W/AND (SUSP) EXPOS COVID-19] Onset: 10-22-2021 Past or Other Problems Problem Classification Problem Date Documented Da te Episodic/Chronic Diabetes or abnormal glucose tolerance complicating ; childbirth; or the puerperium (15 sources) Impaired glucose tolerance in ; Translations: [Abnormal glucose complicating ] Onset: 10-13-2018 12-11-2023 Episodic Other complications of (15 sources) Hemorrhoids in ; Translations: [Hemorrhoids in , third trimester] Onset: 02-07-2018 02-27-2023 Episodic Other complications of (15 sources) History of hemorrhage; Translations: [Supervision of with other poor reproductive or obstetric history, unspecified trimester] Onset: 08-09-2017 02-27-2023 Episodic Other disorders of stomach and duodenum (15 sources) Cyclical vomiting syndrome; Translations: [Cyclical vomiting syndrome unrelated to migraine] Onset: 02-27-2023 02-27-2023 Episodic Other female genital disorders (15 sources) Cervical intraepithelial neoplasia grade 2; Translations: [Moderate cervical dysplasia] Onset: 02-27-2023 02-27-2023 Episodic Other gastrointestinal disorders (15 sources) Functional diarrhea; Translations: [Functional diarrhea] Onset: 02-27-2023 02-27-2023 Episodic Other nervous system disorders (15 sources) Sensory disorder of smell and/or taste; Translations: [Unspecified disturbances of smell and taste] Onset: 02-27-2023 02-27-2023 Episodic Other and delivery including normal (15 sources) Vaginal delivery; Translations: [Encounter for full-term uncomplicated delivery] Onset: 02-25-2018 02-27-2023 Episodic Other skin disorders (2 sources) Skin lesion; Translations: [Disorder of the skin and subcutaneous tissue, unspecified] 11-25-2023 Episodic Unclassified (1 source) CONTACT W/AND (SUSP) [...] e James 02-12-2024 L - -------- Specimen: [id number] Received: 02/13/24 Status: LINK [place] Num: [id number] Spec Type: Surgical Subm Dr: Fay Moon Tissues: A Endometrium - Biopsy (ENDOMETRIUM BX) Procedures: HE/2, Gross/Micro L4 -------- Age/ Patient Sex Location Account Attending Physician -------- Ranjit Goodman 38/F LABELL [id number] Fay Moon -------- SPEC NUM: [id number] RECD: 02/13/24 STATUS: LINK [place] NUM: [id number] ANA: 02/12/[address]: Fay Moon ENTERED: 02/13/[address]: Malachi,Lab SPEC TYPE: Surgical DEPT: SHAN VANN ENTERED BY: [id number] RECV BY: [id number] ORDERED: HE/2, Gross/Micro L4 ORDERED: HE/2, Gross/Micro [...] submitted in a single cassette. (1, ns, [id number]) Microscopic Description Microscopic examinations are performed supporting the above interpretation -------- Specimen: [id number] Received: 02/13/24 Status: LINK [place] Num: [id number] Spec Type: Surgical Subm Dr: Fay Moon Tissues: A Endometrium - Biopsy (ENDOMETRIUM BX) Procedures: HE/2, Gross/Micro L4 -------- Patient: Nash Goodmanlazarolucimarybeth [id number] (Continued) -------- Specimen: [id number] Received: 02/13/24 (Continued) Signed (signature on file) Shayla Watts MD 02/14/24 1517 -------- Specimen: [id number] Received: 02/13/24 Status: LINK [place] Num: [id number] Spec Type: Surgical Subm Dr: Fay Moon Tissues: A Endometrium - Biopsy (ENDOMETRIUM BX) Procedures: HE/2, Farnaz/Micro L4 -------- Patient: Ranjit Goodman [id number] (Continued) -------- Specimen: [id number] Received: 02/13/24 (Continued) CPT Codes 54758 -------- -------- Specimen: [id number] Received: 02/13/24 Status: LINK [place] Num: [id number] Spec Type: Surgical Subm Dr: Fay Moon Tissues: A Endometrium - Biopsy (ENDOMETRIUM BX) Procedures: JEAN/Farnaz Alvarez/Tristen L4 -------- Patient: RexRanjit [id number] (Continued) -------- Signed (signature on file) Shayla Watts MD 02/14/24 1517 Normal [facility] IGP,APTIMA HPV,AGE GDLNon AGE GDLN ACOG TESTING Note . [facility] Comment on above: TESTS RESULT FLAG UN ITS REF RANGE LAB Clinician Provided Cytology Information Source.............Cervix;Endocervix No. of containers..01 ThinPrep Vial Age Algo ACOG Nida... 32 FLAG LEGEND: L-Low Normal,H-High Normal,LL-Alert Low,HH-Alert High <-Panic Low,>-Panic High,A-Abnormal,AA-Critical Abnormal Performed at: 01 =G [address] [address] Margie Moreira MD, HPV APTIMA Negative Negative [facility] Comment on above: This nucleic acid am plification test detects fourteen high- risk HPV types (16,18,31,33,35,39,45,51,52,56,58,59,66,68) without differentiation. Performed at: = - [facility] [id number] Re Examiner: Margie Moreira MD, Phone: [phone] Performed at: - [facility] [id number] Re Examiner: Margie Moreira MD, Phone: [phone] IGP, APTIMA HPV, RFX 16/18,45 Note . [facility] Comment on above: TESTS RESULT FLAG [facility] REF RANGE LAB DIAGNOSIS: 02 NEGATIVE FOR INTRAEPITHELIAL LESION OR MALIGNANCY. Specimen adequacy: 02 Satisfactory for evaluation. Endocervical and/or squamous metaplastic cells (endocervical component) are present. Performed by: 02 Domenica Miranda, Stamp Presser ([facility]) . 02 Note: Note 02 The Pap [...] <-Panic Low,>-Panic High,A-Abnormal,AA-Critical Abnormal Performed at: [address] [place] [address] Margie Moreira MD, BRUSH-SPATULA CERVIX ENDOCERVIX [facility] ABDOMEN PELVIS WO IV CONT [facility] 12-14-2023 CT ABDOMEN PELVIS WO IV CONTRAST [...] Wang D.O. 2023-12-14 09:32:32 Normal Not Available Tissue examon 12-01-2023 Pathologist Cyto stain Nom (Cvx/Vag) [ID] [facility] Comment on above: Clayton Hood MD Board certified in Dermatopathology, Cytopathology, Anatomic Pathology, and Clinical Pathology (electronic signature) For questions regarding this report call [employer] [phone] Pathology report final diagnosis Narrative [facility] Comment on above: IRRITATED FIBROEPITHELIAL POLYP/SKIN TAG Pathology report gross observation Narrative [facility] Comment on above: Received in 10% neut ral buffered formalin is a biopsy of tissue measuring 24 x 15 x 7 mm. It was sectioned into 5 segments and submitted into 4 tissue blocks. This gross description meets regulatory standards for positive identification using two patient identifiers. /cat/is Pathology report microscopic observation Narrative Other stain [facility] Comment on above: The specimen display s a small pedunculated papule with variable epidermal acanthosis and lack of adnexal structures within the dermal stroma. /cat Procedure type BIOPSY [facility] Specimen source Nom (Unsp spec) [facility] Comment on above: RIGHT THIGH Performing Organization Information Site ID: [id number] Name: [facility] Address: [address] [place] [address], [address] [place] [address] Director: Annel Rubio MD [facility] [employer] [facility] No Panel Informationon 11-24 Alba Monson NP 11/25/2023 10:42 AM EXCISION Date/Time: 11/25/2023 10:39 AM Performed by: Alba Monson NP Authorized by: Alba Monson NP Consent: Consent obtained: Verbal Consent given by: Patient Risks, benefits, and alternatives were discussed: yes Risks discussed: Bleeding and pain Alternatives discussed: No treatment [place] protocol: Procedure explained and questions answered to patient or proxy's satisfaction: yes Patient identity confirmed: Verbally with patient Pre-procedure details: Skin preparation: Povidone-iodine Anesthesia: Anesthesia method: Local infiltration Local anesthetic: Lidocaine 1% w/o epi Procedure specific details: Cleansed and numbed area. Lesion removed with scissors. Bleeding controlled with pressure and some drysol. Dry bandage applied Post-procedure details: Procedure completion: Tolerated [facility] Radiology Study observation (narrative) [facility] Covid-19 PCR (CVDTB)on SARS-CoV-2 (COVID-19) RNA CLAUDIA+probe Ql (Unsp spec) Not detected Normal NOT DETECTED [facility] Comment on above: Result Comment: This test is not yet approved or cleared by the [place] FDA. When there are no FDA-approved or cleared tests available, and other criteria are met, FDA can make tests available under an emergency access mechanism called an Emergency Use Authorization (EUA). The EUA for this test is supported by the [employer]ier of Health and Human Service's (HHS's) declaration [...] consistent with SARS-CoV-2. Performed By: #### [facility] #### [facility] [address] [place] [address] Dr. Coty Watts Vital Signs Date Time Vital Sign Value Performing Clinician Faci lity 02-12-2024 09:48-0500 Body mass index (BMI) [Ratio] 44.99 kg/m2 [employer] Work Phone: [facility] 02-12-2024 09:48-0500 Body weight 115.21 kg [employer] Work Phone: [facility] 02-12-2024 09:48-0500 Diastolic blood pressure 72 mm[Hg] [employer] Work Phone: [facility] 02-12-2024 09:48-0500 Systolic blood pressure 118 mm[Hg] Fay Red DO Work Phone: [facility] 12-25-2023 10:43-0400 Body height 160 cm Malathi Landa MD Work Phone: [facility] 12-25-2023 10:43-0400 Body mass index (BMI) [Ratio] 44.89 kg/m2 Malathi Landa MD Work Phone: [facility] 12-25-2023 10:43-0400 Body weight 114.94 kg Malathi Landa MD Work Phone: [facility] 12-25-2023 10:43-0400 Diastolic blood pressure 68 mm[Hg] Malathi Landa MD Work Phone: [facility] 12-25-2023 10:43-0400 Heart rate 91 /min Malathi Landa MD Work Phone: [facility] 12-25-2023 10:43-0400 SaO2% (BldA) [Mass fraction] 98 % Malathi Landa MD Work Phone: [facility] 12-25-2023 10:43-0400 Systolic blood pressure 108 mm[Hg] Malathi Landa MD Work Phone: [facility] 12-18-2023 11:21-0400 Body height 160 cm Malathi Landa MD Work Phone: [facility] 12-18-2023 11:21-0400 Body mass index (BMI) [Ratio] 44.92 kg/m2 Malathi Landa MD Work Phone: [facility] 12-18-2023 11:21-0400 Body weight 115.03 kg Malathi Landa MD Work Phone: [facility] 12-18-2023 11:21-0400 Diastolic blood pressure 76 mm[Hg] Malathi Landa MD Work Phone: [facility] 12-18-2023 11:21-0400 Heart rate 89 /min Malathi Landa MD Work Phone: [facility] 12-18-2023 11:21-0400 Respiratory rate 18 /min Malathi Landa MD Work Phone: [facility] 12-18-2023 11:21-0400 SaO2% (BldA) [Mass fraction] 99 % Malathi Landa MD Work Phone: [facility] 12-18-2023 11:21-0400 Systolic blood pressure 132 mm[Hg] Malathi Landa MD Work Phone: [facility] 11-25-2023 09:02-0400 Body height 160 cm Alba Monson BOARD MILL SUPERVISOR Work Phone: [facility] 11-25-2023 09:02-0400 Body mass index (BMI) [Ratio] 44.64 kg/m2 Alba Monson BOARD MILL SUPERVISOR Work Phone: [facility] 11-25-2023 09:02-0400 Body weight 114.31 kg Alba Monson BOARD MILL SUPERVISOR Work Phone: [facility] 11-25-2023 09:02-0400 Diastolic blood pressure 78 mm[Hg] Alba Monson BOARD MILL SUPERVISOR Work Phone: [facility] 11-25-2023 09:02-0400 Heart rate 87 /min Alba Monson BOARD MILL SUPERVISOR Work Phone: [facility] 11-25-2023 09:02-0400 Respiratory rate 18 /min Alba Monson BOARD MILL SUPERVISOR Work Phone: [facility] 11-25-2023 09:02-0400 SaO2% (BldA) [Mass fraction] 99 % Alba Monson BOARD MILL SUPERVISOR Work Phone: [facility] 11-25-2023 09:02-0400 Systolic blood pressure 128 mm[Hg] Alba Monson BOARD MILL SUPERVISOR Work Phone: [facility] Encounters Encounter Date Encounter Type Care Provider Facility Start: 02-22-2024 End: 02-22-2024 Telephone encounter Fay Masono DO Work Phone: [facility] Comment on above: Referral Start: 02-12-2024 End: 02-12-2024 Patient encounter procedure Fay Red DO Work Phone: [facility] Comment on above: Pre-op examination; Menorrhagia with regular cycle; Abnormal uterine bleeding (AUB); Pelvic pain in female; Request for sterilization Start: 02-12-2024 End: 02-12-2024 Preprocedural examination done Faysalvatore Masono DO Work Phone: [facility] Start: 02-12-2024 End: 02-12-2024 ambulatory FAY MOON Not Available Start: 12-25-2023 End: 12-25-2023 ambulatory MALATHI LANDA Not Available Start: 12-25-2023 End: 12-25-2023 Office outpatient visit 15 minutes Malathi Landa MD Work Phone: [facility] Comment on above: Suppurative hidraden itis (Primary Dx); Acute bilateral low back pain without sciatica Start: 12-21-2023 End: 12-22-2023 ambulatory Daniel Patel PT Work Phone: [facility] Comment on above: Acute right-sided lo w back pain without sciatica (Primary Dx); Right flank pain Start: 12-21-2023 End: 12-21-2023 Bamboo flowsheet Daniel Norton Oumar PT Work Phone: [facility] Start: 12-21-2023 End: 12-21-2023 Bamboo flowsheet Daniel J Oumar PT Work Phone: [facility] Start: 12-20-2023 End: 12-20-2023 Bamboo flowsheet Daniel J Oumar PT Work Phone: [facility] Start: 12-20-2023 End: 12-20-2023 Bamboo flowsheet Daniel Norton Oumar PT Work Phone: [facility] Start: 12-20-2023 End: 12-20-2023 ambulatory Daniel Patel PT Work Phone: [facility] Comment [...] encounter procedure Malathi Landa MD Work Phone: [facility] Start: 12-18-2023 End: 12-18-2023 ambulatory FAY RED Not Available Start: 12-18-2023 End: 12-18-2023 Office outpatient visit 15 minutes Malathi Landa MD Work Phone: [facility] Comment on above: Acute right-sided th oracic back pain (Primary Dx) Start: 12-18-2023 End: 12-18-2023 ambulatory MALATHI LANDA Not Available Start: 12-14-2023 End: 12-14-2023 ambulatory ALBA MONSON Not Available Start: 12-14-2023 End: 12-14-2023 ambulatory ALBA MONSON Not Available Start: 12-11-2023 End: 12-11-2023 ambulatory ALBA MONSON Not Available Start: 11-25-2023 End: 11-25-2023 Bamboo flowsheet Alba Monson BOARD MILL SUPERVISOR Work Phone: [facility] Start: 11-25-2023 End: 12-01-2023 External Result Encounter Alba Monson BOARD MILL SUPERVISOR Work Phone: [facility] Unsolicited Start: 11-25-2023 End: 12-01-2023 External Result Encounter Alba Monson BOARD MILL SUPERVISOR Work Phone: [facility] Unsolicited Start: 11-25-2023 End: 11-25-2023 Patient encounter status Alba Monson BOARD MILL SUPERVISOR Work Phone: [facility] Work Phone: Start: 11-25-2023 End: 11-25-2023 Periodic preventive med est patient 18-39 yrs Alba Monson BOARD MILL SUPERVISOR Work Phone: [facility] Comment on above: Well adult exam (Terri malathi Dx); Morbid (severe) obesity due to excess calories (CMS/HCC); Body mass index (BMI) 40.0-44.9, adult (CMS/HCC); Abnormal cervical Papanicolaou smear, unspecified abnormal pap finding; Suppurative hidradenitis; Skin lesion Start: 11-25-2023 End: 11-25-2023 ambulatory ALBA MONSON Not Available Start: 02-27-2023 End: 02-27-2023 ambulatory TALYABERYL ALY Not Available Start: 10-19-2021 End: 10-19-[address] DOCTOR GARIBAY Facility: Procedures Date Procedure Procedure Detail Performing Clinician Start: 02-12-2024 Urine test visual color cmprsn meths Fay Red DO Work Phone: Start: 12-18-2023 IGP,APTIMA HPV,AGE GDLN Fay Red DO Work Phone: Start: 12-18-2023 Microscopic observat ion [Identifier] in Cervix by Cyto stain Fay Moon DO Work Phone: Start: 11-25-2023 Level i surg patholo gy gross examination only Alba Monson BOARD MILL SUPERVISOR Work Phone: Start: 11-25-2023 EXCISION Alba R Ismael lf BOARD MILL SUPERVISOR Work Phone: Plan of Treatment Date Care Activity Detail Author Start: 01-10-2027 Screening for malign ant neoplasm of cervix [facility] Start: 12-17-2026 Screening for malign ant neoplasm of cervix Pap Smear [facility] Start: 09-16-2024 Influenza vaccination Influenza Vacc ine (#1) [facility] Comment on above: Postponed from 11/18 (Patient Refused) Start: 02-08-2024 End: 02-08-2024 Patient encounter procedure 02/08/2024 9:30 AM EST Procedure Visit [facility] [address] [id number] Fay Moon, DO [address] [place] [address] [facility] Start: 12-28-2023 End: 12-28-2023 ambulatory 12/28/2023 5:00 PM EDT Treatment [facility] [address] [place] [address] Amairani López, CRADLE PLACER [address] [place], [place] [id number] [facility] Start: 12-26-2023 End: 12-26-2023 ambulatory 12/26/2023 5:00 PM EDT Treatment [facility] [address] [place] [phone] Camryn Miner, CASEY [facility] Start: 12-25-2023 End: 12-25-2023 Patient encounter procedure 12/25/2023 10:40 AM EDT Office Visit [facility] [address] [place] [address] Malathi Landa MD [address] [place], [place] [phone] [facility] Start: 12-21-2023 End: 12-21-2023 ambulatory [facility] Comment on above: Arrived Start: 12-20-2023 End: 12-20-2023 ambulatory [facility] Comment on above: Right flank pain; Acute right-sided thoracic back pain Start: 12-18-2023 End: 12-18-2023 Patient encounter procedure 12/18/2023 1:10 PM EDT Consult [facility] [address] [address] Fay Moon DO [address] [place], [place] [id number] [facility] Start: 11-25-2023 End: 11-24-2024 CBC W Auto Differential panel - Blood CBC and differential Lab Routine Morbid (severe) obesity due to excess calories (CMS/HCC) Well adult exam Abnormal cervical Papanicolaou smear, unspecified abnormal pap finding Expected: 11/25/2023 (Approximate), Expires: 11/24/2024 [facility] Work Phone: Comment on above: Expected: 11/25/2023 (Approximate), Expires: 11/24/2024 Start: 11-25-2023 End: 11-24-2024 Comprehensive metabolic 2000 panel - Serum or Plasma Comprehensive metabolic panel Lab Routine Morbid (severe) obesity due to excess calories (CMS/HCC) Well adult exam Abnormal cervical Papanicolaou smear, unspecified abnormal pap finding Expected: 11/25/2023 (Approximate), Expires: 11/24/2024 [facility] Comment on above: Expected: 11/25/2023 (Approximate), Expires: 11/24/2024 Start: 11-25-2023 End: 11-24-2024 Lipid 1996 panel - Serum or Plasma Lipid panel Lab Routine Morbid (severe) obesity due to excess calories (CMS/HCC) Well adult exam Expected: 11/25/2023 (Approximate), Expires: 11/24/2024 [facility] Comment on above: Expected: 11/25/2023 (Approximate), Expires: 11/24/2024 Start: 11-25-2023 End: 11-24-2024 Thyrotropin [Units/volume] in Serum or Plasma TSH Lab Routine Morbid (severe) obesity due to excess calories (CMS/HCC) Well adult exam Expected: 11/25/2023 (Approximate), Expires: 11/24/2024 [facility] Comment on above: Expected: 11/25/2023 (Approximate), Expires: 11/24/2024 Start: 11-25-2023 End: 11-25-2023 Patient encounter procedure 11/25/2023 9:00 AM EDT Office Visit [facility] [address] [place] [address] Alba Monson BOARD MILL SUPERVISOR [address] [place], [place] [phone] Arrived [facility] Comment on above: Arrived Start: 11-19-2023 Influenza vaccination Influenza Vacc ine (#1) [facility] Start: 11-17-2008 Screening for malign ant neoplasm of cervix Pap Smear [facility] Endometrial biopsy Endometrial b iopsy Procedures Routine Menorrhagia with regular cycle Abnormal uterine bleeding (AUB) Pelvic pain in female Ordered: 02/12/2024 [facility] Work Phone: Comment on above: Ordered: 02/12/2024 GENERAL PATHOLOGY GENERAL PATHOL OGY Lab Routine Skin lesion Ordered: 11/25/2023 [facility] Comment on above: Ordered: 11/25/2023 Immunizations Immunization Date Immunization Notes Care Provider Fa cility 03-23-2019 tetanus toxoid, redu sushil diphtheria toxoid, and acellular pertussis vaccine, adsorbed Alba Monson [employer]ARD MILL SUPERVISOR Work Phone: [facility] 12-14-2017 tetanus toxoid, redu sushil diphtheria toxoid, and acellular pertussis vaccine, adsorbed Alba Monson BOARD MILL SUPERVISOR Work Phone: [facility] 01-21-2011 tetanus toxoid, redu sushil diphtheria toxoid, and acellular pertussis vaccine, adsorbed Alba Monson BOARD MILL SUPERVISOR Work Phone: [facility] 12-27-2005 influenza, seasonal, injectable Albabhavin Monson [employer]ARD MILL SUPERVISOR Work Phone: [facility] 12-27-2005 influenza virus vacc ine, unspecified formulation Albabhavin Monson [employer]ARD MILL SUPERVISOR Work Phone: [facility] 09-12-2000 hepatitis B vaccine, pediatric or pediatric/adolescent dosage Albabhavin Monson [employer]ARD MILL SUPERVISOR Work Phone: [facility] 09-12-2000 measles, mumps and rubella virus vaccine Alba Monson BOARD MILL SUPERVISOR Work Phone: [facility] 09-13-1999 hepatitis B vaccine, pediatric or pediatric/adolescent dosage Alba Monson BOARD MILL SUPERVISOR Work Phone: [facility] 09-13-1999 measles, mumps and rubella virus vaccine Alba Monson BOARD MILL SUPERVISOR Work Phone: [facility] 11-16-1992 diphtheria, tetanus toxoids and pertussis vaccine Alba Monson [employer]ARD MILL SUPERVISOR Work Phone: [facility] 11-16-1992 poliovirus vaccine, inactivated Alba Monson BOARD MILL SUPERVISOR Work Phone: [facility] 01-27-1992 diphtheria, tetanus toxoids and pertussis vaccine Alba Monson BOARD MILL SUPERVISOR Work Phone: [facility] 07-08-1991 diphtheria, tetanus toxoids and pertussis vaccine Alba Monson BOARD MILL SUPERVISOR Work Phone: [facility] 07-08-1991 poliovirus vaccine, inactivated Alba Monson BOARD MILL SUPERVISOR Work Phone: [facility] 10-16-1990 haemophilus influenz ae type b vaccine, HbOC conjugate Albabhavin Monson [employer]ARD MILL SUPERVISOR Work Phone: [facility] 10-16-1990 measles, mumps and rubella virus vaccine Alba Monson BOARD MILL SUPERVISOR Work Phone: [facility] 01-09-1989 diphtheria, tetanus toxoids and pertussis vaccine Alba Monson BOARD MILL SUPERVISOR Work Phone: [facility] 01-09-1989 poliovirus vaccine, inactivated Alba Monson BOARD MILL SUPERVISOR Work Phone: [facility] 05-23-1988 diphtheria, tetanus toxoids and pertussis vaccine Alba Monson BOARD MILL SUPERVISOR Work Phone: [facility] 05-23-1988 poliovirus vaccine, inactivated Alba Monson BOARD MILL SUPERVISOR Work Phone: [facility] Payers Date Payer Category Payer Self-pay 2021 [facility] BCBS [id number] 2021 Unknown BCBS BCBS [id number] 2021-Present [id number] [place], [place] [id number] 1987 Unknown [id number] [id number]. 59 1987 Unknown [id number] 2.16840.1.483481.3.579.2. 1258 1987 Unknown [id number] 2.16.840.1.753985.3.579.2. 1258 1987 Unknown [id number] 2.16.840.1.397493.3.579.2. 1258 1987 Unknown [id number] [id number]. 1258 1987 Unknown [id number] 2.16.840.1.271209.3.579.2. 1258 1987 Unknown [id number] 2.16840.1.265579.3.579.2. 1259 1987 Unknown [id number] 2.16.840.1.067094.3.579.2. 9 1987 Unknown [id number] 2.16.840.1.100432.3.579.2. 9 1987 Unknown [id number] 2.16.840.1.011387.3.579.2. 1258 1987 Unknown [id number] 2.16.840.1.014288.3.579.2. 9 1987 Unknown [id number] 2.16.840.1.982347.3.579.2. 1258 1987 Unknown [id number] 2.16.840.1.022975.3.579.2. 1259 1959 Unknown [id number] 1959 Unknown [id number] Unknown [id number] [id number]. 531 Social History Date Type Detail Facility Start: 02-27-2023 Tobacco smoking stat [facility] Never smoked tobacco [facility] Start: 02-27-2023 Tobacco use and exposure Smokeless t obacco non-user [facility] Start: 11-25-2023 End: 12-18-2023 History of Social function [facility] Start: 11-25-2023 End: 12-18-2023 Tobacco use panel [facility] Start: 1987 Sex assigned at Not on file [facility] Clinical Notes 11-25-2023 to 02-22-2024 Telephone Encounter - Susy Goodman - 02/22/2024 7:50 AM ESTTelephone Encounter - Susy Goodman - 02/22/2024 7:50 AM Pauline Martin - 02/12/2024 9:30 AM Sushant Landa MD - 12/25/2023 10:40 AM EDT Note Date & Type Note Facility 02-22-2024 Telephone encount er Note Pt has not received a call stating what time she needs to be at the hospital on Thursday 03/08 for her surgery. Can you assist with this? You can leave her a complete message on her voicemail if she does not answer. [facility] 02-22-2024 Miscellaneous Notes Formattin g of this note might be different from the original. Pt has not received a call stating what time she needs to be at the hospital on Thursday 03/08 for her surgery. Can you assist with this? You can leave her a complete message on her voicemail if she does not answer. documented in this encounter [facility] 02-12-2024 History of Presen t illness Narrative Reason for Appointment: Patient ID: Mica Diaz is a 38 y.o. female who presents for Pre-op Visit and Endometrial Biopsy Patient presents today for Pre Op/Endometrial Biopsy appointment. Patient is scheduled to undergo Da Elsie assisted Bilateral Laparoscopic Salpingectomy and Endometrial Ablation with Molly on 03/08/[address] Moon at [facility]. MEDICATIONS Current Outpatient Medications Medication Instructions doxycycline [...] nursing note reviewed. Exam conducted with a solar photovoltaic crew lead present. Vitals: Estimated body mass index is [...] reviewed, and patient is to proceed to [facility] OR. Follow Up: Patient is to follow up between 1-2 weeks post op to assess proper healing and recovery from procedure. Documented by Valencia Ariza LPN on behalf of: Fay Moon DO documented in this encounter [facility] 12-25-2023 History of Presen t illness Narrative Images from the original note were not included. Mica Diaz is a 38 y.o. female presents [...] An antibiotic prescription will be sent to [facility] pharmacy in [place]. The benefits of continuous antibiotic use outweigh the disadvantages in her case. If the antibiotics prove ineffective, alternative treatments will be considered. documented in this encounter [facility] 12-21-2023 History of Presen t illness Narrative Images from the original note were not included. Physical Therapy Physical Therapy Evaluation Visit Patient Name: Mica Diaz Today's Date: 12/21/2023 Encounter Diagnoses Name Primary? Acute right-sided low back pain without sciatica Yes Right flank pain Visit number: 2 Time in: 4:55 pm Time out: 5:35 pm Sup time: 25 min Total time: 40 min Subjective Mica Diaz 38 y.o. 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 documented in this encounter [facility] 12-20-2023 History of Presen t illness Narrative Images from the original note were not included. Physical Therapy Physical Therapy Evaluation Visit Patient Name: Mica Diaz Today's Date: 12/20/2023 Encounter Diagnoses Name Primary? Acute right-sided low back pain without sciatica Yes Right flank pain Visit number: 1 Subjective Mica Diaz 38 y.o. female presents to physical therapy w/ chief c/o right side back pain pain. 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 Pt will benefit from skilled PT to address the above impairments for 1-3x/week for 4-6 weeks pending pt needs/progress. $40.00 copay may affect visit frequency I hereby deem this POC medically necessary. Please sign below. Date: documented in this encounter [facility] 12-18-2023 History of Presen t illness Narrative Mica Diaz is a 38 y.o. female presents [...] in 5 days documented in this encounter [facility] 11-25-2023 History of Presen t illness Narrative Associated Order(s): EXCISION Post-Procedure Diagnose(s): Skin lesion Images from the original note were not included. Mica Diaz is a 38 y.o. female presents with chief complaint of Skin Tag HPI: Patient here for skin tag on right thigh, states it is very sore and has been Seeping blood and clear fluids. SUBJECTIVE: MEDICATIONS: ALLERGIES No current outpatient medications No Known Allergies PAST MEDICAL HISTORY: SOCIAL HISTORY SURGICAL HISTORY: History reviewed. No pertinent past medical history. Social History Tobacco Use Smoking status: Never Smokeless tobacco: Never History reviewed. No pertinent surgical history. REVIEW OF SYMPTOMS: Review of Systems Constitutional: Negative. HENT: Negative. Eyes: Negative. Respiratory: Negative. Cardiovascular: Negative. Gastrointestinal: Negative. Genitourinary: Negative. Musculoskeletal: Negative. Skin: Negative. lesion Neurological: Negative. Psychiatric/Behavioral: Negative. All other systems reviewed and are negative. Hematological: Negative. Endocrine: Negative. Allergic/Immunologic: Negative. OBJECTIVE: Vitals: 11/25/23 0902 BP: 128/78 Pulse: 87 Resp: 18 SpO2: 99% Physical Exam Vitals and nursing note reviewed. Constitutional: Appearance: Normal appearance. HENT: Head: Normocephalic and atraumatic. Right Ear: Tympanic membrane normal. Left Ear: Tympanic membrane normal. Nose: Nose normal. Mouth/Throat: Mouth: Mucous membranes are moist. Pharynx: Oropharynx is clear. Eyes: Pupils: Pupils are equal, round, and reactive to light. Cardiovascular: Rate and Rhythm: Normal rate and regular rhythm. Heart sounds: Normal heart sounds. Pulmonary: Effort: Pulmonary effort is normal. Breath sounds: Normal breath sounds. Abdominal: General: Bowel sounds are normal. Palpations: Abdomen is soft. Musculoskeletal: General: Normal range of motion. Cervical back: Normal range of motion. Skin: General: Skin is warm and dry. Comments: Right upper innner thigh with abnormal shaped skin tag which is friable Also with many raised boil like lesion lower abdominal pubic line line and inner thighs Neurological: General: No focal deficit present. Mental Status: She is alert. Psychiatric: Mood and Affect: Mood normal. Healthy diet and keep active. Annual eye and dental exam. screen labs, cancer screens and vaccines reviewed an updated as needed. ASSESSMENT AND PLAN: Assessment/Plan Diagnoses and all orders for this visit: Well adult exam - CBC and differential; Future - Comprehensive metabolic panel; Future - Lipid panel; Future - TSH; Future Healthy diet and keep active. Annual eye and dental exam. screen labs, cancer screens and vaccines reviewed an updated as needed. Morbid (severe) obesity due to excess calories (CMS/HCC) - CBC and differential; Future - Comprehensive metabolic panel; Future - Lipid panel; Future - TSH; Future Work on healthy eating habits Body mass index (BMI) 40.0-44.9, adult (CMS/HCC) Abnormal cervical Papanicolaou smear, unspecified abnormal pap finding - Ambulatory referral to Obstetrics / Gynecology; Future - CBC and differential; Future - Comprehensive metabolic panel; Future Never followed with GUN referral. Made referral again Suppurative hidradenitis - doxycycline (Vibra-Tabs) 100 MG tablet; Take with a full glass of water and do not lie down for at least 30 minutes after. Take bid for 7 days then once a day for 14 days Cover with doxy wash with dial soap. Wear loose fitting clothing. Discussed this is a chronic condition. FU in 1 month Skin lesion - GENERAL Raised lesion which was friable send for pathologyPatient ID: Mica Diaz is a 38 y.o. female. EXCISION Date/Time: 11/25/2023 10:39 AM Performed by: Alba Monson NP Authorized by: Alba Monson NP Consent: Consent obtained: Verbal Consent given by: Patient Risks, benefits, and alternatives were discussed: yes Risks discussed: Bleeding and pain Alternatives discussed: No treatment [place] protocol: Procedure explained and questions answered to patient or proxy's satisfaction: yes Patient identity confirmed: Verbally with patient Pre-procedure details: Skin preparation: Povidone-iodine Anesthesia: Anesthesia method: Local infiltration Local anesthetic: Lidocaine 1% w/o epi Procedure specific details: Cleansed and numbed area. Lesion removed with scissors. Bleeding controlled with pressure and some drysol. Dry bandage applied Post-procedure details: Procedure completion: Tolerated No follow-ups on file. documented in this encounter [facility] Evaluation note Diagnosis Acute right-sided thoracic back pain- Primary documented in this encounter [facility]* Diagnosis Acute right-sided low back pain without sciatica- Primary Right flank pain Abdominal pain, unspecified site [facility] Diagnosis Acute right-sided low back pain without sciatica- Primary Right flank pain Abdominal pain, unspecified site [facility] Diagnosis Suppurative hidradenitis- Primary Hidradenitis Acute bilateral low back pain without sciatica documented in this encounter [facility]* Diagnosis Pre-op examination Menorrhagia with regular cycle Abnormal uterine bleeding (AUB) Pelvic pain in female Unspecified symptom associated with female genital organs Request for sterilization [facility] Diagnosis Well adult exam- Primary Routine general medical examination at a health care facility Morbid (severe) obesity due to excess calories ([facility]) Body mass index (BMI) 40.0-44.9, adult ([facility]) Abnormal cervical Papanicolaou smear, unspecified abnormal pap finding Suppurative hidradenitis Hidradenitis Skin lesion Unspecified disorder of skin and subcutaneous tissue documented in this encounter [facility] Summary Purpose Family History No Family History Records FoundNo Family History Records FoundNo Family History Records Found Advance Directives No Advanced Directives Records FoundNo Advanced Directives Records FoundNo Advanced Directives Records Found Reason for Referral Specialty Diagnoses / Procedures Referred By Contac t Referred To Contact Obstetrics and Gynecology Diagnoses Abnormal cervical Papanicolaou smear, unspecified abnormal pap finding Procedures MO OFFICE/OUTPATIENT NEW HIGH [facility] 60 MINUTES Alba Monson NP [address] [place] [address] Fay Moon, DO [address] [place] [address] Referral ID Status Reason Start Date Expiration Date Visits Requested Visits Authorized [id number] Pending Review Specialty Services Required 11/25/2023 05/23/2024 1 1 Additional Source Comments INFORMATION SOURCE (unrecogn ized section and content) DATE CREATED AUTHOR 10/23/2021 [facility] DATE CREATED AUTHOR AUTHOR'S ORGANIZ ATION 02/14/2024 [facility] EPIC DATE CREATED AUTHOR AUTHOR'S ORGANIZ ATION 02/16/2024 [facility] Reason for Visit (unrecogniz ed section and content) Reason Comments Back Pain Patient presents tod for ongoing back pain. Patient seen Alba on 12/10 for issue and it isn't getting better. Specialty Diagnoses / Procedures Referred By Ion bar Referred To Contact Physical Therapy Diagnoses Right flank pain Acute right-sided thoracic back pain Procedures MO OFFICE/OUTPATIENT NEW HIGH [facility] 60 MINUTES Alba Monson NP [address] [place] [address] Daniel Patel, PT [address] [place] [address] Referral ID Status Reason Start Date Expiration Date Visits Requested Visits Authorized [id number] Authorized Specialty Services Required 12/14/2023 06/11/2024 20 20 Reason Comments Follow-up Lower back in the ny ddle still having an occasional sharp pain\, but nothing like before. Patient reports feeling much better than before. Reason Comments Pre-op Visit Endometrial Biopsy Reason Onset Date Comments Referral 02/22/2024 Reason Comments Skin Tag Care Teams (unrecognized sec tion and content) Powder Room Attendant Relationship Specialty Start Date End Date Malathi Landa MD [address] [place] [address] PCP - General Family Medicine 11/24/23 Alba Monson NP [address] [place] [address] Nurse Practitioner Family Medicine 11/24/23 Powder Room Attendant Relationship Specialty Start Date End Date Malathi Landa MD [address] [place] [address] PCP - General Family Medicine 11/24/23 Alba Monson NP [address] [place] [address] Nurse Practitioner Family Medicine 11/24/23 Powder Room Attendant Relationship Specialty Start Date End Date Malathi Landa MD [address] [place] [address] PCP - General Family Medicine 11/24/23 Alba Monson NP [address] [place] [address] Nurse Practitioner Family Medicine 11/24/23 Powder Room Attendant Relationship Specialty Start Date End Date Malathi Landa MD [address] [place] [address] PCP - General Family Medicine 11/24/23 Alba Monson NP [address] [place] [address] Nurse Practitioner Family Medicine 11/24/23 Powder Room Attendant Relationship Specialty Start Date End Date Malathi Landa MD [address] [place] [address] PCP - General Family Medicine 11/24/23 Alba Monson NP [address] [place] [address] Nurse Practitioner Family Medicine 11/24/23 Powder Room Attendant Relationship Specialty Start Date End Date Malathi Landa MD [address] [facility] [place] [address] PCP - General Family Medicine 11/24/23 Alba Monson, BOARD MILL SUPERVISOR [address] [facility] [place] [address] Nurse Practitioner Family Medicine 11/24/23 Powder Room Attendant Relationship Specialty Start Date End Date Talya Aly [address] [place] [address] PCP - [facility] 01/18/22 Malathi Landa MD [address] [facility] [place] [address] PCP - General Family Medicine 11/24/23 Alba Monson BOARD MILL SUPERVISOR [address] [facility] [place] [address] Nurse Practitioner Family Medicine 11/24/23 Powder Room Attendant Relationship Specialty Start Date End Date Malathi Landa MD [address] [facility] [place] [address] PCP - General Family Medicine 11/24/23 Alba Monson, BOARD MILL SUPERVISOR [address] [facility] [place] [address] Nurse Practitioner Family Medicine 11/24/23 Powder Room Attendant Relationship Specialty Start Date End Date Malathi Landa MD [address] [facility] [place] [address] PCP - General Family Medicine 11/24/23 Alba Monson NP [address] [place] [address] Nurse Practitioner Family Medicine 11/24/23 Powder Room Attendant Relationship Specialty Start Date End Date Malathi Landa MD [address] [facility] [place], [place] [address] PCP - General Family Medicine 11/24/23 Alba Monson NP [address] [facility] [place], [place] [id number] Nurse Practitioner Family Medicine 11/24/23 FOR RECORDS [...] BE BASED ON THE PRIMARY CLINICAL RECORDS. [employer] provides no warranty or guarantee of the accuracy or completeness of information in this document.
[2024-03-08 06:36] LABS: Basophils Percent Auto 0.4 % (0.2-2.0); Eosinophils Absolute Auto 0.1 10^3/uL (0.0-0.7); Eosinophils Percent Auto 1.1 % (0.9-7.0); Hematocrit 40.4 % (36.0-48.0); Hemoglobin 13.3 g/dL (12.0-16.0); Immature Granulocytes Abs Auto 0.02 10^3/uL (0.00-0.03); Immature Granulocytes Pct Auto 0.3 % (0.0-0.5); Lymphocytes Absolute Auto 2.8 10^3/uL (1.2-3.8); Lymphocytes Percent Auto 35.3 % (20.5-60.0); Mean Corpuscular HGB Conc 32.9 g/dL (29.9-35.2); Mean Corpuscular Hemoglobin 28.5 pg (26.7-34.0); Mean Corpuscular Volume 86.5 fL (81.0-99.0); Mean Platelet Volume 9.5 fL (9.5-13.5); Monocytes Absolute Auto 0.5 10^3/uL (0.3-0.8); Monocytes Percent Auto 6.1 % (1.7-12.0); Neutrophils Absolute Auto 4.5 10^3/uL (1.4-6.5); Neutrophils Percent Auto 56.8 % (43.0-75.0); Platelet Count 342 10^3/uL (150-450); Red Blood Count 4.67 10^6/uL (4.20-5.40); White Blood Count 7.9 10^3/uL (4.0-11.0)
[2024-03-08 06:55] LABS: HCG Quantitative <1 mIU/mL
[2024-03-08] MEDS: LACTATED RINGER'S SOLUTION 1,000 ML 50 ML IV ×2 (07:02→09:00)
--- NOTE | 2024-03-08 08:43 | P.ON_ITS ---
Brief Operative Note Date of procedure: 03/08/24 Pre-op diagnosis general: menorrhagia, desires permanent sterilization, multip arity Post-op diagnosis: same as pre-op Procedure: NAME OF PROCEDURE: robotic assisted Laparoscopic bilateral salpingectomy, with Molly endometrial ablation with hysteroscopy PROCEDURE: The patient was taken back to the OR where she was prepped and draped in the normal sterile fashion after being placed in the dorsal lithotomy position, after being placed under general anesthesia without difficulty. a weighted speculum was then placed into the vagina. Pap and endometrial bx were performed without difficultyThe anterior lip was grasped with a single tooth tenaculum. The patient was then sounded to approximatley 9cm. The patient was gently sounded using Hegar dilators and the hysteroscope was passed through the cervix into the uterus where both ostia were seen. No gross evidence of polyps, fibroids or malignancy. The cervical length was noted to be 4cm. The Molly ablation apparatus was set to approximately 5cm in length. This was placed in through the cervix and into the uterus. After the seal was tested, at that time the total ablation of 120 seconds was performed with the Molly without difficulty. All instruments were removed from the vagina. A wet sponge stick was placed into the patient's vagina. Attention was then turned to the patient's abdomen, where a scalpel was used to make a small infraumbilical incision. The S retractors were then used to dissect the underlying layers until the fascia could be seen. The fascia was then grasped with Tere clamps and tented up. A knife was then used to make a small incision to the fascia. The muscle was identified, at that time two sutures of #0 Vicryl on a GI needlewas then used and placed through the fascia. The peritoneum was then identified and entered bluntly. The 10-4 Manoj was then placed into the patient's abdomen. This was confirmed with direct visualization of the bowel, using the laparoscope. The patient's abdomen was then insufflated using approximately 4 liters of CO2 gas. Survey of the patient's abdomen demonstrated normal appearing ovaries, uterus and tubes. A second and third lateral robotic ports, which was 8mm in size, was then placed laterally after incision was made in the skin under direct visualization. the robotic arms were engaged. The patient's tube on the patient's right side was identified. The tube was then tented up using a grasper. The ligasure was used to transect and coagulate the mesosalpingx from the fimbriated end to the insertion at the uterus, the tube wa s amputated and removed in its entirety.? Excellent hemostasis was noted. ?This was performed on the contralateral sideas well. The lateral ports were then moved under direct visualization with excellent hemostasis. The abdomen was deinsufflated. All instruments were removed from the patient's abdomen. The fascia was closed using the #0 Vicryl on GI needle. The skin was closed using 4- 0 Vicryl subcuticularly. All instruments were removed from the patient's vagina as well. The patient was taken out of the dorsal lithotomy position and placed in the supine position and taken to recovery in stable condition. Sponge, lap and needle counts were correct x2. ??? Anesthesia: PROSPER Surgeon: Omid Moon Accounts Payable Specialist: Bette Fan Estimated blood loss (mL): 5 Pathology: other (tubes) Condition: stable Disposition: PACU Urinary Catheter Management Urinary Catheter Management Urethral: Cath placed during this visit: no
[2024-03-08] MEDS: HYDROMORPHONE HCL 0.5 MG/0.5 ML SYRINGE IV ×3 (09:38→09:57)
--- NOTE | 2024-03-08 09:55 | PC.NURSE ---
Medicated for pain as ordered; peripad dry
[2024-03-08] MEDS: HYDROCODONE/ACET 5-325 MG TABLET 1 TAB PO (10:07)
--- NOTE | 2024-03-08 10:11 | PC.NURSE ---
Medicated with IV Dilaudid as ordered; peripad dry
--- NOTE | 2024-03-08 10:14 | PC.NURSE ---
Medicated with oral pain medication as ordered
--- NOTE | 2024-03-08 10:50 | PC.NURSE ---
Denies urge to void; peripad dry; pressure applied to umbilical surgical site with no active drainage noted after that; 4x4 and opsite applied using sterile technique
--- NOTE | 2024-03-08 11:31 | PC.NURSE ---
No urge to void; peripad dry
== END 2024-03-08 12:03 | disposition home or self-care (01) ==
PROVIDERS: Visit Provider Obstetrics & Gynecology
PROC: (CPT 58661; principal; 2024-03-08 07:30)
PROC: (CPT 58661; 2024-03-08 07:30)
DX: Z30.2 Encounter for sterilization (principal); N92.0 Excessive and frequent menstruation with regular cycle; Z64.1 Problems related to multiparity; R10.2 Pelvic and perineal pain; N93.9 Abnormal uterine and vaginal bleeding, unspecified; E66.01 Morbid (severe) obesity due to excess calories; Z68.42 Body mass index [BMI] 45.0-49.9, adult; Z79.899 Other long term (current) drug therapy
CPT/HCPCS: 58661; 58563; 36415; 84702; 85025; 88302; J1100; J1171; J1885; J2250; J2405; J2704; J2710; J3010